=== PATIENT | male | born 2000 | race Two or more races ===

== ENCOUNTER 2022-04-10 16:16 | Emergency (ER) | payer OTHER ==
[~2022-04-10] VITALS: Ht 182.9 cm; Wt 90.3 kg
--- NOTE | 2022-04-10 16:38 | NUR ---
BIB [facility] FROM GYM WHILE WORKING OUT FOR CHEST DISCOMFORT, SOB, AND FEELING "JITTERY" SINCE 12 PM TODAY S/P TAKING C4 PRE WORKOUT POWDER AND REIGN ENERGY DRINK. AAOX4, BREATHING EVEN AND UNLABORED, POX 100% ON RA. PT JITTERY. ON MONITOR, WILL CONTINUE TO MONITOR.
[2022-04-10] MEDS ORDERED: LORAZEPAM 1 MG TABLET ONE (16:49)
--- NOTE | 2022-04-10 16:51 | NUR ---
EKG BEING DONE AT BEDSIDE
[2022-04-10] MEDS ORDERED: LORAZEPAM 1 MG TABLET PO ONE (17:00)
--- NOTE | 2022-04-10 18:49 | NUR ---
PT REPORTS THAT FEELS MUCH BETTER NOW. NO LONGER FEELS AGITATED, JITTERY, OR PALPITATIONS. ABLE TO AMBULATE WELL.
--- NOTE | 2022-04-10 18:50 | NUR ---
Patient discharged to home in stable condition. Written and verbal after care instructions given. Patient verbalizes understanding of instruction.
[2022-04-10 18:57] VITALS: BP 116/56
== END 2022-04-10 18:50 | disposition home or self-care (01) ==
LOC: ER 16:30
DX: R00.2 Palpitations (principal)